=== PATIENT | male | born 1985 | race Caucasian/White ===

== ENCOUNTER 2022-11-30 19:38 | Emergency (ER) | payer OTHER, SELFPAY ==
[2022-11-30 20:08] VITALS: BP 152/98; PULSE 103; RESP 18; TEMP 36.8; O2SAT 99
--- NOTE | 2022-11-30 20:38 | XR_ITS ---
The [address] [address] Patient Name: BRITTNEY COLINDRES MRN: [id number] date: 1985 Sex: M Assigned Patient Location: ER Current Patient Location: ED.MAIN Accession/Order Number: [id number] Exam Date: 11/30/2022 20:40 Report Date: 11/30/2022 21:11 At the request of: MARISA FIELD Procedure: XR finger RT min 2V EXAM: XR finger RT min 2V HISTORY: injury COMPARISON: None. TECHNIQUE: 3 views of the right index finger are performed. FINDINGS: There is no acute fracture. The bony structures are intact. Unremarkable soft tissues. No radiopaque soft tissue foreign body. XR/XR finger RT min 2V IMPRESSION: No acute bony abnormality. Electronically authenticated by: HUAN CASTANEDA Date: 11/30/2022 21:11
--- NOTE | 2022-11-30 20:40 | PC.NURSE ---
finger lac bleeding controlled, pt c/o numbness to finger and able to bend at all joints to injured finger at this time
--- NOTE | 2022-11-30 20:59 | ED_ITS ---
Documented by User: NA Bond 11/30/22 21:28 HPI - Wound/Laceration General Chief Complaint: Wound/Laceration Stated Complaint: BWC - UPPER EXTREMITY INJURY Time Seen by Provider: 11/30/22 20:42 History of Present Illness HPI narrative: Patient is a 37-year-old male presents to the Emergency Room for evaluation of a laceration to the right index finger. Patient has a linear laceration ulnar aspect at the level of the PIP joint. Bleeding controlled on arrival. 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 He is unsure of his last tetanus. The wound was irrigated once he arrived at the Emergency Room. Patient notes some paresthesias to the ulnar aspect of the finger just distal to the laceration but notes intact sensation to the very tip. Patient has full range of motion . Patient is right hand dominant Related Data Allergies Allergy/AdvReac Type Severity Reaction Status Date / Time No Known Drug Allergies Allergy Verified 11/30/22 20:12 Review of Systems ROS Constitutional Denies: fever Musculoskeletal Reports: extremity pain (Index finger- right) PFSH PFSH Social History Smoking status: Never smoker Exam Narrative Exam Narrative: Nurse's notes and vital signs reviewed. Patient is not hypoxic. General: The patient appears well and in no apparent distress. Patient is resting comfortably on cart. Skin: Warm, dry, no pallor noted. No evidence of rash, patient has a 1 cm laceration to the ulnar aspect of the right index finger at the level of the PIP joint. Slight paresthesia noted just distal to the laceration but sensation intact to the distal tip. Head: Normocephalic, atraumatic Eye: Normal conjunctiva Respiratory: Patient is in no distress Musculoskeletal: The right hand and wrist shows no obvious deformity. There was no swelling noted. The patient had full range of motion despite tenderness with laceration and tendon disruption The patient had tenderness very localized to laceration. The patient had no tenderness in the anatomical snuff box. The patient had no pain with axial loading of the thumb. Pulses are intact at brachial and radial 2+. There was no deficit at the elbow or shoulder. The patient has normal capillary refill to all distal digits. The patient has no evidence of cyanosis or mottling. The patient is able to flex and extend all digits without difficulty. Neurological: A&O x4, normal sensory with exception of paresthesia just distal to laceration involving the middle phalanx . normal motor, Psychiatric: Cooperative Constitutional Vital Signs, click to edit/add: Last Vital Signs Temp 98.2 F 11/30/22 20:08 Pulse 103 H 11/30/22 20:08 Resp 18 11/30/22 20:08 BP 152/98 H 11/30/22 20:08 Pulse Ox 99 11/30/22 20:08 O2 Del Method Room Air 11/30/22 20:08 Course Vital Signs Vital signs: Vital Signs Temperature 98.2 F 11/30/22 20:08 Pulse Rate 103 H 11/30/22 20:08 Respiratory Rate 18 11/30/22 20:08 Blood Pressure 152/98 H 11/30/22 20:08 Pulse Oximetry 99 11/30/22 20:08 Oxygen Delivery Method Room Air 11/30/22 20:08 Temperature 98.2 F 11/30/22 20:08 Pulse Rate 103 H 11/30/22 20:08 Respiratory Rate 18 11/30/22 20:08 Blood Pressure 152/98 H 11/30/22 20:08 Pulse Oximetry 99 11/30/22 20:08 Oxygen Delivery Method Room Air 11/30/22 20:08 MDM - Wound/Laceration MDM Narrative Medical decision making narrative: . Related injury, [employer] paperwork was filled out. Restrictions involved using a splint daily while at work and daily keeping the wound clean and dry. We discussed a possible permanent paresthesia just distal to the laceration and patient verbalized understanding. Recommend follow-up with occupational medicine clinic for reevaluation. He will call Saturday for an appointment and will need a definitive appointment in approximately ten days for suture removal. Patient verbalized understanding and no further concerns or questions. His tetanus shot was updated. The patient is to followup with occupational medicine clinic in next 2-3 days or to return to the emergency department should any of the signs or symptoms worsen or new symptoms develop. Patient had questions answered. The patient agrees with the following Diagnosis and Treatment plan and the patient will be discharged home. Discharge Plan Discharge Chief Complaint: Wound/Laceration Clinical Impression: Laceration of right index finger Patient Disposition: Home, Self-Care Time of Disposition Decision: 21:04 Condition: Good Mode of Transportation: Private Vehicle Instructions: Finger Laceration (ED) Additional Instructions: Call occupational medicine clinic on Saturday to discuss follow-up for wound recheck and eventually suture removal in ten days Must wear splint daily at work and keep wound clean and dry Stand Alone Forms: Portal Instructions Referrals: [facility] [Outside] - 12/11/22 Discharge Date/Time: 11/30/22 21:44 Procedures ED Procedure Instructions Procedures Procedures: Laceration repair: Done under sterile conditions. The use of Betadine was used to prep and clean the area. Local injection with lidocaine 1% was used, approximately 1.5 cc. The wound was irrigated copiously with normal saline. The wound was explored there was no evidence of foreign material. The laceration was approximated with 5-0 nylon. 4 simple interrupted sutures were placed. Patient tolerated the procedure well. The patient was neurovascularly intact post. the patient had bacitracin applied to the laceration and a dry sterile dressing was place. The patient will need to follow-up in the next 10 days for removal. Documented by User: Jyoti Glynn MD 11/30/22 23:02 HPI - Wound/Laceration General Chief Complaint: Wound/Laceration Stated Complaint: BWC - UPPER EXTREMITY INJURY Time Seen by Provider: 11/30/22 20:42 Related Data Allergies Allergy/AdvReac Type Severity Reaction Status Date / Time No Known Drug Allergies Allergy Verified 11/30/22 20:12 [facility] Social History Smoking status: Never smoker Exam Constitutional Vital Signs, click to edit/add: Last Vital Signs Temp 98.2 F 11/30/22 20:08 Pulse 103 H 11/30/22 20:08 Resp 18 11/30/22 20:08 BP 152/98 H 11/30/22 20:08 Pulse Ox 99 11/30/22 20:08 O2 Del Method Room Air 11/30/22 20:08 Course Vital Signs Vital signs: Vital Signs Temperature 98.2 F 11/30/22 20:08 Pulse Rate 103 H 11/30/22 20:08 Respiratory Rate 18 11/30/22 20:08 Blood Pressure 152/98 H 11/30/22 20:08 Pulse Oximetry 99 11/30/22 20:08 Oxygen Delivery Method Room Air 11/30/22 20:08 Temperature 98.2 F 11/30/22 20:08 Pulse Rate 103 H 11/30/22 20:08 Respiratory Rate 18 11/30/22 20:08 Blood Pressure 152/98 H 11/30/22 20:08 Pulse Oximetry 99 11/30/22 20:08 Oxygen Delivery Method Room Air 11/30/22 20:08 MDM - Wound/Laceration MDM Narrative Medical decision making narrative: . Related injury, [employer] paperwork was filled out. Restrictions involved using a splint daily while at work and daily keeping the wound clean and dry. We discussed a possible permanent paresthesia just distal to the laceration and patient verbalized understanding. Recommend follow-up with occupational medicine clinic for reevaluation. He will call Saturday for an appointment and will need a definitive appointment in approximately ten days for suture removal. Patient verbalized understanding and no further concerns or questions. His tetanus shot was updated. The patient is to followup with occupational medicine clinic in next 2-3 days or to return to the emergency department should any of the signs or symptoms worsen or new symptoms develop. Patient had questions answered. The patient agrees with the following Diagnosis and Treatment plan and the patient will be discharged home. Attending physician attestation I have reviewed the mid-level documentation, agree with the documentation, medical decision making and treatment plan as outlined by the mid-level provider. Discharge Plan Discharge Chief Complaint: Wound/Laceration Clinical Impression: Laceration of right index finger Patient Disposition: Home, Self-Care Time of Disposition Decision: 21:04 Condition: Good Mode of Transportation: Private Vehicle Instructions: Finger Laceration (ED) Additional Instructions: Call occupational medicine clinic on Saturday to discuss follow-up for wound recheck and eventually suture removal in ten days Must wear splint daily at work and keep wound clean and dry Stand Alone Forms: Portal Instructions Referrals: [facility] [Outside] - 12/11/22 Discharge Date/Time: 11/30/22 21:44
[2022-11-30] MEDS: ADACEL DIPH,PERTUSS(ACELL),TET VAC/PF 0.5 ML ADULT SYRINGE IM (21:18)
[2022-11-30] MEDS: BACITRACIN OINTMENT 28.4 GM TUBE 1 APPLIC TOPICAL (21:20)
== END 2022-11-30 21:44 | disposition home or self-care (01) ==
PROVIDERS: Emergency Provider Emergency Medicine; PCP Family Medicine
DX: S61.210A Laceration without foreign body of right index finger without damage to nail, initial encounter (principal); Z23 Encounter for immunization; W45.8XXA Other foreign body or object entering through skin, initial encounter
CPT/HCPCS: 12001; 73140; 90471; 90715; 99284

== ENCOUNTER 2024-05-13 12:56 | Emergency (ER) | payer OTHER, SELFPAY ==
[2024-05-13 13:06] VITALS: BP 125/96; PULSE 104; TEMP 36.8; O2SAT 96; BMI 35.9
--- NOTE | 2024-05-13 13:31 | CT_ITS ---
The [place] [id number] Patient Name: BRITTNEY COLINDRES MRN: [id number] date: 1985 Sex: M Assigned Patient Location: ER Current Patient Location: ER Accession/Order Number: [id number] Exam Date: 05/13/2024 14:10 Report Date: 05/13/2024 14:34 At the request of: JARROD GILMAN Procedure: CT lumbar spine wo con EXAMINATION: CT lumbar spine wo con HISTORY: radicular pain COMPARISON: No relevant comparison available. TECHNIQUE: Axial, Coronal, and Sagittal images were created without IV contrast. Dose reduction techniques were achieved by using automated exposure control and/or adjustment of mA and/or kV according to patient size and/or use of iterative reconstruction technique. FINDINGS: VERTEBRAL BODIES: FACET JOINTS: No disruption or abnormal widening. DISCS: Mild diffuse disc bulging with suspected marked narrowing of the L5-S1 right neural foramen which may contribute to patient's symptoms. Mild diffuse disc bulging with foraminal narrowing at L3-4 and L4-5, mild on the right and moderate or greater on the left. CENTRAL CANAL: No evidence of hemorrhage. PARASPINAL AREA: No visible mass. CT/CT lumbar spine wo con IMPRESSION: 1. L5-S1 right neural foramen moderate to marked narrowing likely contributing to patient's symptoms. There is also mild foramen narrowing at L3-4 and L4-5 on the right. 2. Additional moderate or possibly greater foramen narrowing at L3-4 and L4-5 and the left. Electronically authenticated by: MERI PABLO Date: 05/13/2024 14:34
[2024-05-13] MEDS: KETOROLAC TROMETHAMINE 30 MG/ML VIAL 15 MG IVP (13:52)
[2024-05-13] MEDS: ORPHENADRINE 60 MG/ 2 ML VIAL IV (13:53)
[2024-05-13 13:59] LABS: Basophils Percent Auto 0.6 % (0.2-2.0); Eosinophils Absolute Auto 0.1 10^3/uL (0.0-0.7); Hematocrit 46.2 % (42.0-54.0); Hemoglobin 15.6 g/dL (14.0-18.0); Immature Granulocytes Abs Auto 0.01 10^3/uL (0.00-0.03); Immature Granulocytes Pct Auto 0.2 % (0.0-0.5); Lymphocytes Absolute Auto 0.8 10^3/uL (1.2-3.8); Lymphocytes Percent Auto 14.9 % (20.5-60.0); Mean Corpuscular HGB Conc 33.8 g/dL (29.9-35.2); Mean Corpuscular Hemoglobin 31.3 pg (25.9-34.0); Mean Corpuscular Volume 92.8 fL (80.0-94.0); Mean Platelet Volume 10.4 fL (9.5-13.5); Monocytes Absolute Auto 0.6 10^3/uL (0.3-0.8); Monocytes Percent Auto 10.6 % (1.7-12.0); Neutrophils Absolute Auto 3.8 10^3/uL (1.4-6.5); Neutrophils Percent Auto 72.7 % (43.0-75.0); Platelet Count 215 10^3/uL (150-450); Red Blood Count 4.98 10^6/uL (4.70-6.10); Red Cell Distribution Width 12.8 % (11.0-15.0); White Blood Count 5.2 10^3/uL (4.0-11.0)
[2024-05-13 14:27] LABS: Alanine Aminotransferase 62 U/L (16-63); Albumin Globulin Ratio 1.1; Albumin Level 3.8 g/dL (3.4-5.0); Alkaline Phosphatase 77 U/L (46-116); Anion Gap 12.2; Aspartate Amino Transferase 37 U/L (15-37); BUN Creatinine Ratio 13.6; Bilirubin Total 0.6 mg/dL (0.2-1.0); Calcium 8.7 mg/dL (8.5-10.1); Carbon Dioxide 26.7 mmol/L (21.0-32.0); Chloride 103 mmol/L (98-107); Estimated GFR (African America >60 (>=60 mL/min/1.73m^2); Estimated GFR (Non-African Ame >60 (>=60 mL/min/1.73m^2); Globulin 3.4 g/dL; Glucose 102 mg/dL (74-106); Potassium 3.9 mmol/L (3.5-5.1); Sodium 138 mmol/L (136-145); Total Protein 7.2 g/dL (6.4-8.2)
--- NOTE | 2024-05-13 15:16 | ED_ITS ---
HPI HPI - General Adult General Chief complaint: Back Pain/Injury Stated complaint: BACK PAIN Time Seen by Provider: 05/13/24 13:02 Mode of arrival: walk-in History of Present Illness HPI narrative: Patient presents to ED complaining of low back pain. He said it started over the past few days and is just gotten worse. He said sometimes it is hard to move and he has been having a hard time getting out of bed. He has a right lower back pain that radiates into the right buttock area. Patient states he also has some anterior thigh pain as well but it is worse in the low back and buttock area. He said it does not really radiate down past the knee or into the foot. No difficulty with bowel or bladder habits. No fevers. He denies any IV drug abuse. Patient's not on blood thinners. Patient did ambulate into the ED. was because he had trouble getting in and out of bed and has not been moving well overall. He denies any abdominal pain or vomiting. Patient states he has not really had any other back issues in the past. He denies any known trauma. He works at [employer] and does lift heavy boxes often. No other complaints at this time Related Data Home Medications ?Medication ?Instructions ?Recorded ?Confirmed albuterol sulfate 90 mcg/actuation 2 puff inhalation Q6H PRN 05/13/24 05/13/24 aerosol inhaler shortness of breath or wheezing Previous Rx's ?Medication ?Instructions ?Recorded cyclobenzaprine 10 mg tablet 10 mg PO TID #14 tabs 05/13/24 hydrocodone 5 mg-acetaminophen 325 1 tab PO Q6H PRN pain #14 tabs 05/13/24 mg tablet methylprednisolone 4 mg tablets in 4 mg PO DAILY #21 ea 05/13/24 a dose pack (Medrol (Brian)) Allergies Allergy/AdvReac Type Severity Reaction Status Date / Time No Known Drug Allergies Allergy Verified 11/30/22 20:12 Opioid HPI Opioid Management Most Recent Opioid Data: No Data to Display Review of Systems ROS Status of ROS 10 or more systems reviewed and unremark able except as noted in history and below PFSH PFSH Social History Smoking status: Never smoker Little interest or pleasure in doing things: not at all Feeling down, depressed, or hopeless: not at all Exam Narrative Exam Narrative: Time Seen: [] Vital Signs: [Per nurse's notes.] General: [Alert] Skin: [Warm, dry, no rash.] Head: [Normocephalic, atraumatic.] Neck: [Supple, trachea midline.] Eye: [Pupils are equal, round and reactive to light, extraocular movements are intact, normal conjunctiva.] Ears, nose, mouth and throat: oral mucosa moist. Cardiovascular: [Regular rate and rhythm, no murmur.] Respiratory: [Lungs are clear to auscultation, respirations are non-labored, breath sounds are equal.] Chest wall: [No tenderness, no deformity.] Gastrointestinal: [Soft, nontender, non distended, normal bowel sounds.] MSK: 5 out of 5 muscle strength x 4 extremities no calf pain or edema. Normal distal pulses and sensation. Right lumbar paraspinal tenderness and SI joint tenderness. Psychiatric: [Cooperative, appropriate mood & affect.] Neurological: [Alert and oriented to person, place, time, and situation, no focal neurological deficit observed.] Constitutional Vital Signs, click to edit/add: Last Vital Signs Temp 98.3 F 05/13/24 13:06 Pulse 104 H 05/13/24 13:06 Resp 18 05/13/24 13:06 BP 125/96 H 05/13/24 13:06 Pulse Ox 96 05/13/24 13:06 O2 Del Method Room Air 05/13/24 13:06 Course Vital Signs Vital signs: Vital Signs Temperature 98.3 F 05/13/24 13:06 Pulse Rate 104 H 05/13/24 13:06 Respiratory Rate 18 05/13/24 13:06 Blood Pressure 125/96 H 05/13/24 13:06 Pulse Oximetry 96 05/13/24 13:06 Oxygen Delivery Method Room Air 05/13/24 13:06 Temperature 98.3 F 05/13/24 13:06 Pulse Rate 104 H 05/13/24 13:06 Respiratory Rate 18 05/13/24 13:06 Blood Pressure 125/96 H 05/13/24 13:06 Pulse Oximetry 96 05/13/24 13:06 Oxygen Delivery Method Room Air 05/13/24 13:06 Medical Decision Making MDM Narrative Medical decision making narrative: Patient CT scan shows foraminal narrowing and disc protrusion definitely could account for the patient's symptoms. Patient will be sent home with pain medicine muscle relaxer and a Medrol Dosepak. Patient was given orthospine follow-up information. Return to ED if worsening symptoms or neurological changes otherwise follow-up outpatient with primary doctor and orthospine. Patient is comfortable with care plan for home and ambulated out of the ED in no acute distress Differential Diagnosis Differential Diagnosis: Sciatica lumbar strain or sprain Lab Data Lab results reviewed: Yes I reviewed the patient's lab results Labs: Lab Results 05/13/24 Range/Units 13:50 WBC 5.2 (4.0-11.0) 10^3/uL RBC 4.98 (4.70-6.10) 10^6/uL Hgb 15.6 (14.0-18.0) g/dL Hct 46.2 (42.0-54.0) % MCV 92.8 (80.0-94.0) fL MCH 31.3 (25.9-34.0) pg MCHC 33.8 (29.9-35.2) g/dL RDW 12.8 (11.0-15.0) % Plt Count 215 (150-450) 10^3/uL MPV 10.4 (9.5-13.5) fL Neut % (Auto) 72.7 (43.0-75.0) % Lymph % (Auto) 14.9 L (20.5-60.0) % [place] % (Auto) 10.6 (1.7-12.0) % Eos % (Auto) 1.0 (0.9-7.0) % Baso % (Auto) 0.6 (0.2-2.0) % Neut # (Auto) 3.8 (1.4-6.5) 10^3/uL Lymph # (Auto) 0.8 L (1.2-3.8) 10^3/uL [place] # (Auto) 0.6 (0.3-0.8) 10^3/uL Eos # (Auto) 0.1 (0.0-0.7) 10^3/uL Baso # (Auto) 0.0 (0.0-0.1) 10^3/uL Abs Immat Gran (auto) 0.01 (0.00-0.03) 10^3/uL Imm/Tot Granulo (auto) 0.2 (0.0-0.5) % Sodium 138 (136-145) mmol/L Potassium 3.9 (3.5-5.1) mmol/L Chloride 103 (98-107) mmol/L Carbon Dioxide 26.7 (21.0-32.0) mmol/L Anion Gap 12.2 BUN 15.0 (7.0-18.0) mg/dL Creatinine 1.10 (0.70-1.30) mg/dL Est GFR ( Amer) >60 (>=60 mL/min/1.73m^2) Est GFR (Non-Af Amer) >60 (>=60 mL/min/1.73m^2) BUN/Creatinine Ratio 13.6 Glucose 102 (74-106) mg/dL Calcium 8.7 (8.5-10.1) mg/dL Total Bilirubin 0.6 (0.2-1.0) mg/dL AST 37 (15-37) U/L ALT 62 (16-63) U/L Alkaline Phosphatase 77 (46-116) U/L Total Protein 7.2 (6.4-8.2) g/dL Albumin 3.8 (3.4-5.0) g/dL Globulin 3.4 g/dL Albumin/Globulin Ratio 1.[address] scan - abdomen: Radiologist's impression: ITS Impressions Lumbar Spine CT 05/13/24 13:31 IMPRESSION: 1. L5-S1 right neural foramen moderate to marked narrowing likely contributing to patient's symptoms. There is also mild foramen narrowing at L3-4 and L4-5 on the right. 2. Additional moderate or possibly greater foramen narrowing at L3-4 and L4-5 and the left. Electronically authenticated by: MERI PABLO Date: 05/13/2024 14:34 Discharge Plan Discharge Chief Complaint: Back Pain/Injury Clinical Impression: Sciatica Patient Disposition: Home, Self-Care Time of Disposition Decision: 15:09 Condition: Good Mode of Transportation: Private Vehicle Prescriptions / Home Meds: New hydrocodone-acetaminophen 5-325 mg tablet 1 tab PO Q6H PRN (Reason: pain) Qty: 14 0RF methylprednisolone [Medrol (Brian)] 4 mg tablets,dose pack 4 mg PO DAILY Qty: 21 0RF Rx Instructions: medrol dosepak use as directed cyclobenzaprine 10 mg tablet 10 mg PO TID Qty: 14 0RF No Action albuterol sulfate 90 mcg/actuation HFA aerosol inhaler 2 puff INHALATION Q6H PRN (Reason: shortness of breath or wheezing) Print Language: Estonian Instructions: Sciatica (ED) Referrals: Lisa Nguyen MD [Primary Care Provider] - 1 week Sunny Maldonado MD [Physician] - 1 week
== END 2024-05-13 15:19 | disposition home or self-care (01) ==
PROVIDERS: Emergency Provider Emergency Medicine; PCP Family Medicine
DX: M54.31 Sciatica, right side (principal)
CPT/HCPCS: 36415; 72131; 80053; 85025; 96374; 96375; 99285; J1885; J2360